=== PATIENT | female | born 1990 | race Caucasian/White ===

== ENCOUNTER 2021-03-26 08:00 | Outpatient (CLI) | payer OTHER ==
[2021-03-26 19:26] LABS: BILIRUBIN,URINE NEGATIVE (NEGATIVE); GLUCOSE, URINE (UA) NEGATIVE (NEGATIVE); KETONES,URINE (UA) NEGATIVE (NEGATIVE); LEUKOCYTE ESTERASE, URINE NEGATIVE (NEGATIVE); NITRITE,URINE NEGATIVE (NEGATIVE); OCCULT BLOOD,URINE NEGATIVE (NEGATIVE); PROTEIN,URINE NEGATIVE (NEGATIVE); UROBILINOGEN,URINE 0.2 (NORMAL) E.U./dL (NORMAL)
[2021-03-26 19:28] LABS: BACTERIA,URINE None Seen /HPF (None Seen); CLARITY,URINE CLEAR (CLEAR); RBC,URINE None Seen /HPF (0-5); SQUAMOUS EPITHELIAL CELL,UR FEW Squamous (<= Few); WBC,URINE 0-3 /HPF (0-5)
== END 2021-03-26 23:59 | disposition home or self-care (01) ==
LOC: LAB.WC 08:00
PROVIDERS: ATTEND Obstetrics & Gynecology
DX: Z34.80 Encounter for supervision of other normal pregnancy, unspecified trimester (principal)
CPT/HCPCS: 81001; 87086

== ENCOUNTER 2021-04-12 12:29 | Outpatient (CLI) | payer OTHER ==
[2021-04-12 13:53] LABS: BASOPHILS % (AUTO) 0.2 %; EOSINOPHILS # (AUTO) 0.1 10^3/uL (0.0-0.7); EOSINOPHILS % (AUTO) 1.1 %; HCT - HEMATOCRIT 39.6 % (37.0-47.0); HGB - HEMOGLOBIN 13.2 g/dL (12.0-16.0); LYMPHOCYTES % (AUTO) 22.7 %; MEAN CORPUSCULAR HEMOGLOBIN 28.8 pg (27.0-31.0); MEAN CORPUSCULAR HGB CONC 33.3 g/dL (32.0-36.0); MEAN CORPUSCULAR VOLUME 86.5 fL (81.0-99.0); MEAN PLATELET VOLUME 10.4 fL (7.9-10.8); MONOCYTES # (AUTO) 0.6 10^3/uL (0.0-1.0); MONOCYTES % (AUTO) 6.3 %; NEUTROPHILS # (AUTO) 6.2 10^3/uL (1.5-6.6); NEUTROPHILS % (AUTO) 69.4 %; PLT - PLATELET COUNT 214 10^3/uL (130-450); RED BLOOD COUNT 4.58 10^6/uL (4.20-5.40); RED CELL DISTRIBUTION WIDTH 13.5 % (12.0-15.0); WHITE BLOOD COUNT 8.9 x10^3/uL (4.8-10.8)
--- NOTE | 2021-04-12 16:54 | Ultrasound Report ---
PROCEDURE: OB First Trimester w/TV INDICATIONS: SUPERVISION NORMAL OUTSIDE/PRIOR DATING DATA: Last menstrual period (LMP): 02/19/2021. LMP-based estimated date of delivery (DOUG): 11/16/2021. First dating scan (date and location): 04/12/2021. Estimated date of delivery (DOUG) from first dating scan: 11/28/2021. TECHNIQUE: Real-time scanning was performed of the fetus and maternal pelvic organs, with image documentation. Endovaginal scanning was also performed to better visualize the fetus and maternal ovaries. COMPARISON: None FINDINGS: Embryo: [place]-rump length measures 1.06 cm corresponding to 7 week 1 day gestation. No perigestation al bleed present. Heart rate: 145 bpm Maternal cervix measures 3.2 cm in length, and is closed. Measurement variability in dating: +/- 4 weeks by LMP, +/- 7 days by mean sac diameter (use before 6 weeks gestation if crown-rump length not able to be measured), +/- 5 days by crown-rump length (6-12 weeks gestation). Maternal organs: Ovaries right-sided corpus luteum cyst noted. Both ovaries appropriate in size and echotexture without torsion. No adnexal mass.. IMPRESSION: Single live intrauterine corresponds with a 7 week 1 day gestation Reviewed by: Lion White MD on 04/12/2021 3:53 PM AKST Approved by: Lion White MD on 04/12/2021 3:53 PM AKST Station ID: [id number]
[2021-04-13 11:38] LABS: HEPATITIS B SURFACE ANTIGEN NON-REACTIVE (NON-REACTIVE); HEPATITIS C ANTIBODY NON-REACTIVE (NON-REACTIVE)
[2021-04-13 14:02] LABS: HIV AG/AB 4TH GEN NON-REACTIVE (NON-REACTIVE)
== END 2021-04-12 12:30 | disposition home or self-care (01) ==
LOC: DI 12:29
PROVIDERS: ATTEND Nurse Practitioner Obstetrics & Gynecology
DX: Z34.81 Encounter for supervision of other normal pregnancy, first trimester (principal); Z3A.01 Less than 8 weeks gestation of pregnancy; Z36.89 Encounter for other specified antenatal screening
CPT/HCPCS: 36415; 85025; 86592; 86762; 86787; 86803; 86850; 86900; 86901; 87340; 87389

== ENCOUNTER 2021-05-13 08:00 | Outpatient (CLI) | payer OTHER ==
[2021-05-13 22:42] LABS: CHLAMYDIA TRACHOMATIS DNA NEGATIVE (NEGATIVE); NEISSERIA GONORRHOEAE DNA NEGATIVE (NEGATIVE); TRICHOMONAS VAGINALIS DNA NEGATIVE (NEGATIVE)
== END 2021-05-13 23:59 | disposition home or self-care (01) ==
LOC: LAB 08:00
PROVIDERS: ATTEND Nurse Practitioner Obstetrics & Gynecology
DX: Z34.80 Encounter for supervision of other normal pregnancy, unspecified trimester (principal); Z36.89 Encounter for other specified antenatal screening
CPT/HCPCS: 87491; 87591; 87661

== ENCOUNTER 2021-07-13 10:11 | Outpatient (CLI) | payer OTHER ==
--- NOTE | 2021-07-13 12:45 | Ultrasound Report ---
PROCEDURE: OB Detailed Eval INDICATIONS: SUPERVISION OF OUTSIDE/PRIOR DATING DATA: Last menstrual period (LMP): February 19, 2021. LMP-based estimated date of delivery (DOUG): November 26, 2021. First dating scan (date ): April 12, 2021. Estimated date of delivery (DOUG) from first dating scan: November 28, 2021. TECHNIQUE: Real-time scanning was performed of the fetus, with image documentation and biometric measurements. COMPARISON: April 12, 2021 FINDINGS: General: A single living intrauterine gestation is present. Presentation: Transverse, variable Placenta: Placental position is low lying, approximately 1.4 cm from the internal os. Amniotic fluid index: 15 cm, appropriate for gestational age. heart rate: 148 beats per minute. Maternal cervical canal: 3.9 cm long; normal length is 2.5 cm or more. biometrics: Biparietal diameter: 4.8 cm Head circumference: 17.9 cm Abdominal circumference: 16.9 cm Femur length: 3.4 cm Estimated gestational age from initial scan: 20 weeks, 2 days. Composite gestational age from present scan: 20 weeks, 5 days Estimated weight and percentile: 403.4 g; 88.8 percentile Measurement variability in biometric dating: +/- 10 days from 12-20 weeks gestation, +/- 2 weeks from 20-30 weeks gestation, +/- 3 weeks at 30 weeks gestation or later. Anatomic survey: Neuro: Ventricles are normal at less than 10 mm. Cisterna magna is normal at 3-11 mm. Cerebellum i s normal in size and morphology. Nuchal skin fold: Normal at less than 6 mm between 14 and 20 weeks gestational age. Face: Nose and lips, facial profile are normal. Spine: No evidence for spina bifida. Heart: 4-chambered heart is present, with normal ventricular outflow tracts. Diaphragm: Diaphragm is intact. Stomach: Left-sided stomach is present. Kidneys: No hydronephrosis. Normal is less than 5 mm in 2nd trimester, less than 7 mm in 3rd trimester. Cord: 3 vessel cord has orthotopic insertion. Bladder: Normal in size. Extremities: All 4 extremities are visualized. IMPRESSION: Live single intrauterine gestation as detailed above. Reviewed by: Salo More MD on 07/13/2021 12:44 PM PDT Approved by: Salo More MD on 07/13/2021 12:44 PM PDT Station ID: [id number]
== END 2021-07-13 10:12 | disposition home or self-care (01) ==
LOC: DI 10:11
PROVIDERS: ATTEND Obstetrics & Gynecology
DX: Z34.82 Encounter for supervision of other normal pregnancy, second trimester (principal); Z3A.20 20 weeks gestation of pregnancy; Z36.89 Encounter for other specified antenatal screening

== ENCOUNTER 2021-08-03 16:46 | Outpatient (CLI) | payer OTHER ==
--- NOTE | 2021-08-04 17:15 | Ultrasound Report ---
PROCEDURE: OB F/U or Repeat INDICATIONS: LOW LYING PLACENTA OUTSIDE/PRIOR DATING DATA: Last menstrual period (LMP): 02/19/2021. LMP-based estimated date of delivery (DOUG): 11/27/2019 to. First dating scan (date and location): 04/12/2021. Estimated date of delivery (DOUG) from first dating scan: At 1822. The below data below was generated using the study generated DOUG of changes 22 TECHNIQUE: Real-time scanning was performed of the fetus, with image documentation and biometric measurements. Endovaginal scanning: Not indicated COMPARISON: 04/12/2021, 07/13/2021. FINDINGS: General: A single living intrauterine gestation is present. Presentation: Vertex Placenta: Placental position is posterior, without previa. Lower placenta edge is now approximately 5.5 cm from internal os. Amniotic fluid index: 16.6 cm, normal for gestational age. heart rate: 141 beats per minute. Maternal cervical canal: 3.4 cm long; normal length is 2.5 cm or more. Other: Not applicable. IMPRESSION: 1. No evidence of low-lying placenta seen on the current study. N average is approximately 5.5 cm fro m the internal os. 2. Normal amount of amniotic fluid. Fetus is in vertex presentation. heart rate is 141 bpm. Reviewed by: Reid Benz MD on 08/04/2021 5:13 PM PDT Approved by: Reid Benz MD on 08/04/2021 5:13 PM PDT Station ID: [id number]
== END 2021-08-03 16:47 | disposition home or self-care (01) ==
LOC: DI 16:46
PROVIDERS: ATTEND Obstetrics & Gynecology
DX: Z34.80 Encounter for supervision of other normal pregnancy, unspecified trimester (principal)

== ENCOUNTER 2021-08-26 13:28 | Outpatient (CLI) | payer OTHER ==
[2021-08-26 14:37] LABS: HCT - HEMATOCRIT 33.3 % (37.0-47.0); HGB - HEMOGLOBIN 10.4 g/dL (12.0-16.0); MEAN CORPUSCULAR HEMOGLOBIN 27.2 pg (27.0-31.0); MEAN CORPUSCULAR HGB CONC 31.2 g/dL (32.0-36.0); MEAN CORPUSCULAR VOLUME 87.2 fL (81.0-99.0); MEAN PLATELET VOLUME 10.2 fL (7.9-10.8); RED BLOOD COUNT 3.82 10^6/uL (4.20-5.40); RED CELL DISTRIBUTION WIDTH 14.9 % (12.0-15.0); WHITE BLOOD COUNT 5.3 x10^3/uL (4.8-10.8)
== END 2021-08-26 13:29 | disposition home or self-care (01) ==
LOC: LAB 13:28
PROVIDERS: ATTEND Obstetrics & Gynecology
DX: Z34.80 Encounter for supervision of other normal pregnancy, unspecified trimester (principal); Z36.89 Encounter for other specified antenatal screening
CPT/HCPCS: 36415; 82950; 85027

== ENCOUNTER 2021-11-09 07:31 | Outpatient (CLI) | payer OTHER ==
[2021-11-09] MEDS ORDERED: SODIUM CHLORIDE FLUSH 0.9% 10 ML SYRINGE IVP PRN (08:17)
[2021-11-09] MEDS ORDERED: TERBUTALINE 1 MG/ML VIAL SUBQ PRN (08:17)
[2021-11-09] MEDS ORDERED: RHO(D) IMMUNE GLOBULIN 300 MCG SYRINGE IM PRN (08:17)
[2021-11-09] MEDS ORDERED: fentaNYL 100 MCG/2 ML VIAL IVP PRN (08:17)
[2021-11-09] MEDS ORDERED: ONDANSETRON 4 MG/2 ML VIAL IVP PRN (08:17)
[2021-11-09] MEDS ORDERED: MINERAL OIL LIGHT 10 ML TOP SCH (09:00)
--- NOTE | 2021-11-09 09:09 | PROVIDER PROGRESS NOTE ---
- Procedures OB Procedure Performed: NST NST Procedure: NST Procedure Start Date 11/09/21 Start Time 07:50 Stop Time 08:15 Vibroacoustic Stimulation Used No Patient States Movement Yes Service Date of procedure: 11/09/21 (Read 11/09/21) - Plan Plan: Patient is a 31-year-old -0-0-1 at 37 weeks 4 days gestation presenting for external cephalic version. She denies contractions she has good movement, no leaking, no vaginal bleeding. She denies headache, right upper quadrant pain, changes in vision. Past medical history Iron deficiency anemia Past surgical history Foot surgery Family history Father: [place], diabetes Maternal grandfather: Coronary artery disease Social history Denies tobacco, alcohol, drugs Physical Constitutional: alert, no acute distress, well hydrated, well developed, well nourished, appropriate dress. Cardiovascular: Regular rate and rhythm. Respiratory: no respiratory distress. Abdomen: nondistended, nontender, no guarding. Psych: affect and mood appropriate, normal interaction, good eye contact. FHT: 135 bpm baseline, moderate variability, accelerations present, no decelerations. [place]: Quiescent Ultrasound: Cephalic presentation Assessment and plan 31-year-old -0-0-1 at 37 weeks 4 days gestation with cephalic presentation 1. malpresentation, resolved: Patient presented for external cephalic version as she was breech presentation last week in clinic. Today on ultrasound, she is cephalic, so procedure not performed. Reactive NST today. 2. 37 weeks gestation -Follow-up in clinic tomorrow for routine visit.
[2021-11-09 09:12] VITALS: BP 126/62
== END 2021-11-09 08:45 | disposition home or self-care (01) ==
LOC: WFO 07:31 → FBP 07:34 → WFO 08:45
PROVIDERS: ATTEND Obstetrics & Gynecology
DX: Z34.93 Encounter for supervision of normal pregnancy, unspecified, third trimester (principal)
CPT/HCPCS: 59025

== ENCOUNTER 2021-11-24 14:16 | Inpatient (IN) | payer OTHER ==
[2021-11-24] MEDS ORDERED: SODIUM CHLORIDE FLUSH 0.9% 10 ML SYRINGE IVP PRN (14:22)
[2021-11-24] MEDS ORDERED: hydrALAZINE INJ 20 MG/ML VIAL IVP PRN ×2 (14:22)
[2021-11-24] MEDS ORDERED: miSOPROStoL 200 MCG TABLET PR PRN (14:22)
[2021-11-24] MEDS ORDERED: NIFEdipine 10 MG CAPSULE PO PRN (14:22)
[2021-11-24] MEDS ORDERED: CARBOPROST TROMETHAMINE 250 MCG/ML AMP IM PRN (14:22)
[2021-11-24] MEDS ORDERED: OXYTOCIN 10 UNIT/ML VIAL IM PRN (14:22)
[2021-11-24] MEDS ORDERED: METHYLERGONOVINE 0.2 MG/ML VIAL IM PRN (14:22)
[2021-11-24] MEDS ORDERED: OXYTOCIN/SODIUM CHLORIDE 500 ML IV PRN (14:22)
[2021-11-24] MEDS ORDERED: TRANEXAMIC ACID IN NACL 1,000 MG/100 ML BAG IV PRN (14:22)
[2021-11-24] MEDS ORDERED: TERBUTALINE 1 MG/ML VIAL SUBQ PRN (14:22)
[2021-11-24] MEDS ORDERED: miSOPROStoL 200 MCG TABLET BC PRN (14:22)
[2021-11-24] MEDS ORDERED: fentaNYL 100 MCG/2 ML VIAL IVP PRN (14:22)
[2021-11-24] MEDS ORDERED: lidocaine 1% 20 ML MDV ID PRN (14:22)
[2021-11-24] MEDS ORDERED: LABETALOL 20 MG/4 ML SYRINGE IVP PRN ×3 (14:22)
[2021-11-24] MEDS ORDERED: SODIUM CHLORIDE FLUSH 0.9% 10 ML SYRINGE IVP SCH (15:00)
[2021-11-24 15:05] LABS: BASOPHILS % (AUTO) 0.1 %; EOSINOPHILS # (AUTO) 0.1 10^3/uL (0.0-0.7); EOSINOPHILS % (AUTO) 0.8 %; HCT - HEMATOCRIT 34.8 % (37.0-47.0); HGB - HEMOGLOBIN 11.6 g/dL (12.0-16.0); LYMPHOCYTES # (AUTO) 1.4 10^3/uL (1.5-3.5); LYMPHOCYTES % (AUTO) 15.2 %; MEAN CORPUSCULAR HGB CONC 33.3 g/dL (32.0-36.0); MEAN CORPUSCULAR VOLUME 83.9 fL (81.0-99.0); MEAN PLATELET VOLUME 10.6 fL (7.9-10.8); MONOCYTES # (AUTO) 0.5 10^3/uL (0.0-1.0); MONOCYTES % (AUTO) 5.9 %; NEUTROPHILS # (AUTO) 6.9 10^3/uL (1.5-6.6); NEUTROPHILS % (AUTO) 76.6 %; PLT - PLATELET COUNT 168 10^3/uL (130-450); RED BLOOD COUNT 4.15 10^6/uL (4.20-5.40); RED CELL DISTRIBUTION WIDTH 15.2 % (12.0-15.0)
[2021-11-24 15:49] LABS: ALBUMIN 3.2 g/dL (3.2-5.5); ALBUMIN/GLOBULIN RATIO 0.9 (1.0-2.2); BILIRUBIN,TOTAL 0.4 mg/dL (0.2-1.0); CALCIUM 9.6 mg/dL (8.5-10.3); CREATININE 0.8 mg/dL (0.4-1.0); POTASSIUM 3.8 mmol/L (3.5-5.0); TOTAL PROTEIN 6.7 g/dL (6.7-8.2)
[2021-11-24] MEDS ORDERED: AMPICILLIN 2 GM in SODIUM CHLORIDE 0.9% MINIBAG 100 ML IV ONE (16:18)
--- NOTE | 2021-11-24 16:29 | HISTORY & PHYSICAL EXAMINATION ---
Admit History - Visit Reason Visit Reason: Other (IOL for elevated BP at routine OB visit today. 140s/90s x2) - : 2 Parity: 1 Care: positive: [facility] Risk/History: positive: induced HTN Complications This : positive: induced HTN Smoking Status: Never smoker - Mother's Labs Mother's Blood Type: positive: O Mother's RH: positive: Positive GBS: positive: Group B Strep Positive Rubella Status: positive: Immune - Other Maternal History Other Maternal History: Med: Anemia Surg: Foot laceration repair Meds/Allgy - Allergies Allergies/Adverse Reactions: Allergies Allergy/AdvReac Type Severity Reaction Status Date / Time No Known Drug Allergies Allergy Verified 11/24/21 16:14 Review of Systems - All Other Systems All Other Systems: reports: Reviewed and negative Physical - Abdominal Exam Vital Signs: Temp Pulse Resp BP Pulse Ox 98.1 F 74 16 112/71 11/24/21 15:26 11/24/21 15:26 11/24/21 15:26 11/24/21 15:26 Contraction Frequency (min/apart): None Uterine Resting Tone: positive: Soft - Monitoring Heart Rate Baseline: 130 Strip Review: positive: Category I - Presentation Presentation: positive: Vertex (Cephalic, EFW 3600g, placenta posterior) - Vaginal Exam Membranes: positive: Membranes intact Dilation (in cm): 2 Effacement (%): 20 Station: positive: -3 Cervical Position: positive: Midposition - Speculum Exam Speculum Exam Performed: positive: No Plan for Labor - Plan For Labor I expect patient to be DC'd or transferred within 96 hours.: Yes Plan for Labor: 31yo at 39.5w confirmed by 7w US sent from the office for IOL for gestational hypertension vs preeclampsia, pending PCR - Admit, consent obtained for IOL - GBS positive, will start ampicillin with second misoprostol - Misoprostol 50mcg x2, then plan for Pitocin 0600 tomorrow - Anticipate by tomorrow
[2021-11-24] MEDS ORDERED: OXYTOCIN/SODIUM CHLORIDE 500 ML IV SCH (17:00)
[2021-11-24 17:12] LABS: CREATININE,URINE 181.3 mg/dL; PROTEIN/CREATININE RATIO,URINE 0.1 (<=0.2)
[2021-11-24] MEDS: miSOPROStoL 100 MCG TABLET BC SCH ×2 (17:30→21:51)
[2021-11-24] MEDS: LACTATED RINGERS 1,000 ML IV SCH (20:50)
[2021-11-25] MEDS: AMPICILLIN 1 GM in SODIUM CHLORIDE 0.9% MINIBAG 100 ML IV SCH ×4 (02:08→13:53)
[2021-11-25] MEDS: LACTATED RINGERS 1,000 ML IV SCH ×3 (02:21→13:09)
[2021-11-25] MEDS ORDERED: hydrALAZINE INJ 20 MG/ML VIAL IVP PRN ×4 (05:11→05:14)
[2021-11-25] MEDS ORDERED: NIFEdipine 10 MG CAPSULE PO PRN ×2 (05:11→05:14)
[2021-11-25] MEDS ORDERED: LABETALOL 20 MG/4 ML SYRINGE IVP PRN ×6 (05:11→05:14)
[2021-11-25] MEDS ORDERED: SODIUM CHLORIDE FLUSH 0.9% 10 ML SYRINGE IVP PRN (05:14)
[2021-11-25] MEDS ORDERED: METHYLERGONOVINE 0.2 MG/ML VIAL IM PRN (05:14)
[2021-11-25] MEDS ORDERED: lidocaine 1% 20 ML MDV ID PRN (05:14)
[2021-11-25] MEDS ORDERED: OXYTOCIN 10 UNIT/ML VIAL IM PRN (05:14)
[2021-11-25] MEDS ORDERED: miSOPROStoL 200 MCG TABLET BC PRN (05:14)
[2021-11-25] MEDS ORDERED: TERBUTALINE 1 MG/ML VIAL SUBQ PRN (05:14)
[2021-11-25] MEDS ORDERED: fentaNYL 100 MCG/2 ML VIAL IVP PRN (05:14)
[2021-11-25] MEDS ORDERED: TRANEXAMIC ACID IN NACL 1,000 MG/100 ML BAG IV PRN (05:14)
[2021-11-25] MEDS ORDERED: miSOPROStoL 200 MCG TABLET PR PRN (05:14)
[2021-11-25] MEDS ORDERED: CARBOPROST TROMETHAMINE 250 MCG/ML AMP IM PRN (05:14)
[2021-11-25] MEDS: OXYTOCIN/SODIUM CHLORIDE 500 ML IV SCH ×2 (06:17→15:56)
--- NOTE | 2021-11-25 09:22 | PROVIDER PROGRESS NOTE ---
Labor Progress Note - Uterine Monitoring Uterine Monitoring Mode: positive: External toco Contraction Frequency (min/apart): 4 Contraction Intensity: positive: Moderate Uterine Resting Tone: positive: Soft - Monitoring Monitor Mode: positive: External ultrasound Heart Rate Baseline: 120 Heart Rate Variability: positive: Moderate (6-25 bmp) Accelerations: positive: Present, 15x15 Decelerations: positive: None Strip Review: positive: Category I - Vaginal Exam Dilation (in cm): 4 Effacement (%): 50 Cervical Position: Midposition - Labor Progress Note Labor Progress Note/Additional Text: 31yo at 39.6w confirmed by 7w US admitted for IOL for GHTN - Misoprosol 50mcg x2 - Receiving ampicillin for positive GBS - Continue Pitocin - Plan for AROM next exam
[2021-11-25] MEDS ORDERED: NALOXONE 0.4 MG/ML VIAL IVP PRN (11:47)
[2021-11-25] MEDS ORDERED: ROPIVACAINE 0.2% 200 MG/100 ML BAG EP PRN (11:47)
[2021-11-25] MEDS ORDERED: ONDANSETRON 4 MG/2 ML VIAL IVP PRN ×2 (11:47→12:27)
[2021-11-25] MEDS ORDERED: NALBUPHINE 10 MG/ML AMP IVP PRN (11:47)
[2021-11-25] MEDS ORDERED: METOCLOPRAMIDE 10 MG/2 ML VIAL IVP PRN (11:47)
[2021-11-25] MEDS ORDERED: ePHEDrine 50 MG/ML VIAL IVP PRN (11:47)
[2021-11-25] MEDS ORDERED: diphenhydrAMINE INJ 50 MG/ML VIAL IVP PRN (11:47)
--- NOTE | 2021-11-25 11:50 | ANESTHESIA ---
Pre-Anesthesia VS, & Labs - Diagnosis labor indiction - Procedure epidural Vital Signs: Temp Pulse Resp BP Pulse Ox 36.8 C 69 19 109/60 100 11/25/21 06:00 11/25/21 06:00 11/25/21 06:00 11/25/21 06:00 11/25/21 06:00 Height: 5 ft 4 in Weight (kg): 98.883 kg Body Mass Index: 37.4 BMI Classification: Obese - NPO Other - Is Patient ?: Yes - Lab Results Current Lab Results: Laboratory Tests 11/24/21 15:20: Blood Type O POSITIVE, Antibody Screen NEGATIVE 11/24/21 15:20: Sodium 136, Potassium 3.8, Chloride 104, Carbon Dioxide 23, Anion Gap 9.0, BUN 10, Creatinine 0.8, Estimated GFR (MDRD) 84 L, Glucose 100, Calcium 9.6, Total Bilirubin 0.4, AST 16, ALT 16, Alkaline Phosphatase 101, Total Protein 6.7, Albumin 3.2, Globulin 3.5, Albumin/Globulin Ratio 0.9 L 11/24/21 14:50: WBC 9.0, RBC 4.15 L, Hgb 11.6 L, Hct 34.8 L, MCV 83.9, MCH 28.0, MCHC 33.3, RDW 15.2 H, Plt Count 168, MPV 10.6, Neut # (Auto) 6.9 H, Lymph # (Auto) 1.4 L, [place] # (Auto) 0.5, Eos # (Auto) 0.1, Baso # (Auto) 0.0, Absolute Nucleated RBC 0.00, Nucleated RBC % 0.0 Fish Bones: 11/24/21 14:50 11/24/21 15:20 Home Medications and Allergies Active Medications Carboprost Tromethamine (Carboprost Tromethamine 250 Mcg/Ml Amp) 250 mcg IM .ONCE PRN PRN Reason: Hemorrhage Diphenhydramine HCl (Diphenhydramine Inj 50 Mg/Ml Vial) 12.5 - 25 mg IVP Q6HR PRN PRN Reason: ITCHING Ephedrine Sulfate (Ephedrine 50 Mg/Ml Vial) 5 mg IVP Q5M PRN PRN Reason: For SBP<100;give until SBP>100 Fentanyl (Fentanyl 100 Mcg/2 Ml Vial) 50 mcg IVP Q1H PRN PRN Reason: Severe Pain (score 7-10) Hydralazine HCl (Hydralazine Inj 20 Mg/Ml Vial) 10 mg IVP .ONCE PRN PRN Reason: SBP> or= 160 OR DBP> or= 110 Hydralazine HCl (Hydralazine Inj 20 Mg/Ml Vial) 5 - 10 mg IVP Q20M PRN; Protocol PRN Reason: SBP> or= 160 OR DBP> or= 110 Ampicillin Sodium 1 gm/ Sodium (Chloride) 100 mls @ 200 mls/hr IV Q4H [facility] Last Infusion: 11/25/21 10:30 Dose: Infused Lactated Ringer's (Lr) 1,000 mls @ 125 mls/hr IV .Q8H [facility] Last Admin: 11/25/21 08:04 Dose: 125 mls/hr Tranexamic Acid (Tranexamic 1,000 Mg/100ml-Nacl) 1,000 mg in 100 mls @ 600 mls/hr IV Q30M PRN PRN Reason: EBL >1200mL and within 3hr Oxytocin/Sodium Chloride (Pitocin/Sodium Chloride) 500 mls @ 1 mls/hr IV TITR CINTHIA; Protocol Last Admin: 11/25/21 06:17 Dose: 1 milliunit/min, 1 mls/hr Ropivacaine (Naropin 0.2%) 200 mg in 100 mls @ 0 mls/hr EP PRN PRN; Protocol PRN Reason: PAIN Labetalol HCl (Labetalol 20 Mg/4 Ml Syringe) 20 mg IVP .ONCE PRN PRN Reason: SBP> or= 160 OR DBP> or= 110 Labetalol HCl (Labetalol 20 Mg/4 Ml Syringe) 20 - 80 mg IVP Q10M PRN; Protocol PRN Reason: SBP> or= 160 OR DBP> or= 110 Labetalol HCl (Labetalol 20 Mg/4 Ml Syringe) 20 - 40 mg IVP Q10M PRN; Protocol PRN Reason: SBP> or= 160 OR DBP> or= 110 Lidocaine HCl (Lidocaine 1% 20 Ml Mdv) 20 ml ID .ONCE PRN PRN Reason: PERINEAL REPAIR Stop: 11/28/21 05:14 Methylergonovine Maleate (Methylergonovine 0.2 Mg/Ml Vial) 0.2 mg IM .ONCE PRN PRN Reason: Hemorrhage Metoclopramide HCl (Metoclopramide 10 Mg/2 Ml Vial) 10 mg IVP Q6HR PRN PRN Reason: Nausea / Vomiting Misoprostol (Misoprostol 100 Mcg Tablet) 50 mcg BC Q4H [facility] Last Admin: 11/24/21 21:51 Dose: 50 mcg Misoprostol (Misoprostol 200 Mcg Tablet) 600 mcg BC .ONCE PRN PRN Reason: Hemorrhage Misoprostol (Misoprostol 200 Mcg Tablet) 800 mcg CA .ONCE PRN PRN Reason: Hemorrhage Nalbuphine HCl (Nalbuphine 10 Mg/Ml Amp) 2.5 - 5 mg IVP Q4H PRN PRN Reason: ITCHING Naloxone HCl (Naloxone 0.4 Mg/Ml Vial) 0.1 mg IVP Q2M PRN PRN Reason: RR<8 Nifedipine (Nifedipine 10 Mg Capsule) 10 - 20 mg PO Q20M PRN; Protocol PRN Reason: SBP> or= 160 OR DBP> or= 110 Ondansetron HCl (Ondansetron 4 Mg/2 Ml Vial) 4 mg IVP Q6HR PRN PRN Reason: Nausea / Vomiting Oxytocin (Oxytocin 10 Unit/Ml Vial) 10 unit IM .ONCE PRN PRN Reason: Step One if no IV access. Sodium Chloride (Sodium Chloride Flush 0.9% 10 Ml Syringe) 10 ml IVP PRN PRN PRN Reason: NEEDED PER PROVIDER ORDERS Sodium Chloride (Sodium Chloride Flush 0.9% 10 Ml Syringe) 10 ml IVP Q8H [facility] Terbutaline Sulfate (Terbutaline 1 Mg/Ml Vial) 0.25 mg SUBQ .ONCE PRN PRN Reason: Tachystole Allergies/Adverse Reactions: Allergies Allergy/AdvReac Type Severity Reaction Status Date / Time No Known Drug Allergies Allergy Verified 11/24/21 16:14 Anes History & Medical History - Anesthetic History Anesthesia Complications: reports: No previous complications - Medical History Smoking Status: Never smoker - Obstetrical History : 2 Parity: 1 Events: reports: induced HTN Complications: reports: induced HTN Exam General: Alert, Oriented x3 Dental: WNL Neck Mobility: Normal Mallampati classification: II Thyromental Distance: greater than 6 cm Respiratory: Lungs clear Cardiovascular: Regular rate Plan Anesthesia Type: Epidural Consent for Procedure(s) Verified and Reviewed: Yes Code Status: Attempt Resuscitation ASA classification: 2-Mild systemic disease Is this case an emergency?: No
--- NOTE | 2021-11-25 13:07 | PROVIDER PROGRESS NOTE ---
Labor Progress Note - Uterine Monitoring Contraction Frequency (min/apart): 2-4 Contraction Intensity: positive: Moderate Uterine Resting Tone: positive: Soft - Monitoring Monitor Mode: positive: External ultrasound Heart Rate Baseline: 130 Accelerations: positive: Present, 15x15 Decelerations: positive: None, Early Strip Review: positive: Category I - Vaginal Exam Dilation (in cm): 7 Effacement (%): 100 Station: 0 Cervical Position: Anterior - Labor Progress Note Labor Progress Note/Additional Text: 31yo admitted for IOL for GHTN - Received epidural - Continue Pitocin - GBS treated - Anticipate
[2021-11-25] MEDS ORDERED: MAGNESIUM HYDROXIDE 2,400 MG/30 ML UDC PO PRN (16:20)
[2021-11-25] MEDS ORDERED: HYDROCORTISONE 1% CREAM 28 GM TUBE PR PRN (16:20)
[2021-11-25] MEDS ORDERED: WITCH HAZEL/GLYCERIN 1 PAD TOP PRN (16:20)
--- NOTE | 2021-11-25 16:25 | DELIVERY NOTE ---
Delivery Note - Labor Labor: positive: Induced by oxytocin - Delivery Method Delivery Method: positive: Spontaneous vaginal delivery - Cervical Ripening Method Cervical Ripening Method: positive: Misoprostil - Presentation Presentation: positive: Vertex, ROGER - left occiput anterior - Nuchal Cord Nuchal Cord: positive: None - Anesthetic Anesthetic Type: - Amniotic Fluid Description Amniotic Fluid Description: positive: Clear - Laceration Laceration: positive: 1st degree (Not requiring repair) - Delivery Outcome Delivery Outcome: positive: Livebirth - [place] : positive: Placed in direct skin contact with mother, Stimulated, Warmed [place] sex: positive: Male - Cord Cord: positive: 3 vessels - Placenta Placenta: positive: Intact, Spontaneous - Estimated Blood Loss Estimated Blood Loss (in cc): 300 - Delivery Comments (Free Text/Narrative) Delivery Comments (Free Text/Narrative): SVE 10/100+2. Maternal pushing with good efforts. Head delivered ROGER. Shoulders and body delivered with ease. Baby placed on mother's abdomen. Delayed cord clamping. Fundus firm. Placenta delivered spontaneously and intact. 3vc. Vagina and perineum inspected- 1st degree vaginal laceration not requiring repair. Fundal massage and Pitocin infusion, bleeding decreased. QBL 300cc. Family bonding at bedside.
[2021-11-25] MEDS: ACETAMINOPHEN 500 MG TABLET PO SCH ×2 (16:55→23:46)
[2021-11-25] MEDS: IBUPROFEN 800 MG TABLET PO SCH ×2 (16:56→23:47)
[2021-11-25] MEDS ORDERED: LACTATED RINGERS 1,000 ML IV SCH (17:00)
[2021-11-25] MEDS: SODIUM CHLORIDE FLUSH 0.9% 10 ML SYRINGE IVP SCH (20:08)
[2021-11-25] MEDS: DOCUSATE SODIUM 100 MG CAPSULE PO SCH (20:08)
[2021-11-26] MEDS: SODIUM CHLORIDE FLUSH 0.9% 10 ML SYRINGE IVP SCH (03:57)
[2021-11-26] MEDS: IBUPROFEN 800 MG TABLET PO SCH ×2 (05:01→14:28)
--- NOTE | 2021-11-26 08:06 | PROVIDER PROGRESS NOTE ---
Subjective - Prog Note Date Prog Note Date: 11/26/21 Prog Note Time: 08:00 - Subjective Pt reports feeling: Improved (Doing well and want to go home.) Subjective: Post day #! No prob with nursing no more pain Perineum : intact normal lochia P: home today and RTO 6 wks for PP check Objective - Vital Signs/Intake & Output Vital Signs: Vital Signs x48h Temp Pulse Resp BP 11/26/21 03:54 97.9 F 64 18 98/55 L Intake & Output: Intake & Output 11/23/21 11/24/21 11/25/21 11/26/21 23:59 23:59 23:59 23:59 Intake Total 1900 3259.65 500 Output Total 415 600 Balance 1900 2844.65 -100 - Lab Results Fish Bones: 11/24/21 14:50 11/24/21 15:20
--- NOTE | 2021-11-26 08:09 | Discharge Plan ---
Discharge Plan Problem Reviewed?: Yes Disposition: Home, Self Care Diet: Regular Activity Restrictions: No sexual intercourse 6w Shower Restrictions: No Driving Restrictions: Yes (until PP 6 w) Assistance Devices: Other (none) Weight Bearing: Partial Weight No Smoking: If you smoke, Please STOP! Call for help. Follow-up with: Zander Villa MD [Provider Admit Priv/Credential] -
--- NOTE | 2021-11-26 08:19 | DISCHARGE SUMMARY ---
Discharge Summary Admit Date: 11/24/21 Discharge Date: 11/26/21 Discharging Provider: Steve Primary Care Provider: Allen Code Status: Attempt Resuscitation - DIAGNOSES Admission Diagnoses: IUP gestational hypertension Discharge Diagnoses with Status of Each Condition: Normal #1 - HPI History of Present Illness: This 31 yo was admitted for IOL with cytotec and pitocin for gHTN. Responded well and had a successful NVD. - HOSPITAL COURSE Hospital Course: Normal course. - ALLERGIES Allergies/Adverse Reactions: Allergies Allergy/AdvReac Type Severity Reaction Status Date / Time No Known Drug Allergies Allergy Verified 11/24/21 16:14 - PHYSICAL EXAM AT DISCHARGE General Appearance: positive: No acute distress Eyes Bilateral: positive: Normal inspection ENT: positive: ENT inspection nml Neck: positive: Nml inspection Respiratory: positive: Chest non-tender, No respiratory distress Cardiovascular: positive: Regular rate & rhythm Abdomen: positive: Non-tender Back: positive: Nml inspection Skin: positive: Color nml Extremities: positive: Non-tender Neurologic/Psychiatric: positive: Oriented x3 - LABS Result Diagrams: 11/24/21 14:50 11/24/21 15:20 - QUALITY (Female Hip Fx Only) Was patient sent home on osteoporosis medication?: No - FOLLOW UP Follow Up: at the clinic in 6 weeks - TIME SPENT Time Spent in Discharge (Minutes): 10
[2021-11-26 12:52] VITALS: BP 123/70
[2021-11-26] MEDS: DOCUSATE SODIUM 100 MG CAPSULE PO SCH (14:28)
[2021-11-26] MEDS: ACETAMINOPHEN 500 MG TABLET PO SCH (14:28)
--- NOTE | 2021-11-26 18:29 | Labor Flowsheet ---
Labor Flowsheet Datetime Report Generated by CPN: 11/26/2021 18:29 Datetime: 11/26/2021 12:47 VITAL SIGNS NBP Sys/[place]/Mean (mmHg): 123 : 70 : 81 Pulse: 77 LaborFlag: Labor Datetime: 11/25/2021 18:50 SpO2 (%): 100 Datetime: 11/25/2021 16:29 Respirations: 17 Temperature (C): 37.1 Datetime: 11/25/2021 15:50 FHR Baseline Rate : 135 Datetime: 11/25/2021 15:46 STAGE 2 Pushing: Coached on Pushing; No Urge to Push Pushing Position: Pushing with Contractions; Pushing Lithotomy Pushing Progress: Descent with Pushing; with Pushing Datetime: 11/25/2021 15:45 UTERINE ACTIVITY Monitor Mode: External Frequency (min): 2-3.5 Quality: Moderate Duration (sec): 50-70 Pattern: Normal: <= 5 Contractions in 10 Minutes Resting Tone (Palpate): Relaxed ASSESSMENT A Monitor Mode: External US Variability: Moderate 6-25 bpm Accelerations: 15X15 Decelerations: None Category: Category I Datetime: 11/25/2021 15:44 I/O Interventions: [place] Discontinued Datetime: 11/25/2021 15:40 VAGINAL EXAM Dilatation (cm): 10.0 Effacement (%): 100 Station: 2 Exam by: Dr. Baldwin Datetime: 11/25/2021 15:00 Pitocin Checklist: At Least 1 Acceleration of 15 bpm x 15 Seconds in 30 Minutes or Adequate Variabi lity; No More than 1 Late Deceleration Occurred in Past 30 Minutes; No More than 2 Variable Decelerat ions > 60 Seconds in Duration and decreasing >60 bpm in 30 minutes; No More than 5 Uterine Contractio ns in 10 Minutes for any 20 Minute Interval; Uterus Palpates Soft between Contractions Datetime: 11/25/2021 14:47 Provider Reviewed Strip: Yes Communication Comments: Provider reviewed EFM. No change in plan of care. Datetime: 11/25/2021 14:33 Monitor Interventions for UA: [place] Adjusted Pain Coping: Sleeping Datetime: 11/25/2021 14:30 Comments: accelerations with each contraction. Confirmed and maternal tracings, pulse oximet ry on continuously Datetime: 11/25/2021 14:00 FHR Baseline Changes: No Baseline Change Datetime: 11/25/2021 13:53 Antibiotics: Ampicillin IV 1 Gm Datetime: 11/25/2021 13:19 Monitor Interventions for FHR: Ultrasound Adjusted Patient Position/Activity: Semi-Fowlers Datetime: 11/25/2021 13:01 Temperature Route: Oral Datetime: 11/25/2021 12:41 Patient Care Comments: frog legs Datetime: 11/25/2021 12:37 PATIENT CARE IV/Blood Work: IV Bolus Started COMMUNICATION Communication: Provider at Bedside Datetime: 11/25/2021 11:41 Epidural Procedure: Loading Dose Epidural Procedure Other: Pump Started Datetime: 11/25/2021 11:30 Actions for Decelerations: Other PAIN Pain Scale: 10 Comfort Measures: Breathing/Relaxation; Coaching; Back Rub Given; Family Support Datetime: 11/25/2021 11:23 PROCEDURE TIME OUT Procedure Verify: Accurate Procedure Consent Form; Agreement on Procedure to be Done; Correct Patie nt Position ANESTHESIA Anesthesia Plans: Epidural Epidural Positioning: Sitting Datetime: 11/25/2021 10:59 Anesthesia Comments: Christy Aube, [employer]SEM[employer] OPERATOR at bedside for consultation per patient request Datetime: 11/25/2021 10:40 Vaginal Bleeding: Normal Show Cervix, Consistency: Soft Cervix, Position: Midposition Vaginal Exam Comments: Per patient request to evaluate pain control choice Datetime: 11/25/2021 09:45 Membrane Status: Ruptured Membranes Rupture Method: Spontaneous Amniotic Fluid Color: Clear Amniotic Fluid Amount: Small Amniotic Fluid Odor: Normal Nitrazine: Positive Datetime: 11/25/2021 09:27 MEDICATIONS Pitocin (milliunits): Increased to @ 9 Datetime: 11/25/2021 07:16 Contraction Comments: inverted Datetime: 11/25/2021 07:02 Oxygen Method: Room Air Datetime: 11/24/2021 23:59 Pain Presence: Intermittent Pain Type: Cramping Pain Location: Abdomen Datetime: 11/24/2021 21:51 Cervical Ripening Agents: Cytotec @ Datetime: 11/24/2021 21:21 Medication Comments: LR 500 ml bolus complete, Kr @ 125 ml/hr Datetime: 11/24/2021 19:53 Stage of : Labor Vital Sign Comments: 4
== END 2021-11-26 18:00 | disposition home or self-care (01) | DRG 807 ==
LOC: WFO 14:16 → FBP 14:18 → WFO 14:20 → FBP 14:22 → OBSVTOIN 11-25 07:21
PROVIDERS: ADMIT Obstetrics & Gynecology; ATTEND Obstetrics & Gynecology
PROC: 10E0XZZ Delivery of Products of Conception, External Approach (ICD-10-PCS; principal; 2021-11-25)
PROC: 3E0DXGC Introduction of Other Therapeutic Substance into Mouth and Pharynx, External Approach (ICD-10-PCS; 2021-11-25)
PROC: 3E033VJ Introduction of Other Hormone into Peripheral Vein, Percutaneous Approach (ICD-10-PCS; 2021-11-25)
DX: O13.4 Gestational [pregnancy-induced] hypertension without significant proteinuria, complicating childbirth (principal); Z37.0 Single live birth; Z3A.39 39 weeks gestation of pregnancy; O70.0 First degree perineal laceration during delivery; O99.824 Streptococcus B carrier state complicating childbirth
CPT/HCPCS: 80053; 82570; 84156; 85025; 86850; 86900; 86901; 96365; A9270; J7120

== ENCOUNTER 2022-02-08 06:13 | Day surgery (SDC) | payer OTHER ==
[2022-02-08] MEDS ORDERED: LACTATED RINGERS 1,000 ML IV ONE ×2 (06:18→09:08)
[2022-02-08 06:40] LABS: HCG UR QUAL NEGATIVE
[2022-02-08] MEDS ORDERED: PROPOFOL 200 MG/20 ML VIAL IVP ONE (07:09)
[2022-02-08] MEDS ORDERED: ROCURONIUM 50 MG/5 ML VIAL ONE (07:09)
[2022-02-08] MEDS ORDERED: LIDOCAINE MPF 2%-EPI 1:200000 20 ML VIAL ONE (07:11)
[2022-02-08] MEDS ORDERED: BUPIVACAINE 0.5% PF 30 ML VIAL ONE (07:11)
[2022-02-08] MEDS ORDERED: MIDAZOLAM 2 MG/2 ML VIAL ONE (07:11)
[2022-02-08] MEDS ORDERED: fentaNYL 100 MCG/2 ML VIAL ONE (07:11)
[2022-02-08] MEDS ORDERED: ONDANSETRON 4 MG/2 ML VIAL ONE (07:13)
[2022-02-08] MEDS ORDERED: DEXAMETHASONE 4 MG/ML VIAL ONE ×2 (07:13→08:06)
--- NOTE | 2022-02-08 07:43 | ANESTHESIA ---
Pre-Anesthesia VS, & Labs Height: 5 ft 4 in Weight (kg): 94.8 kg Body Mass Index: 35.9 BMI Classification: Obese - NPO >8 hours - Is Patient ?: No <Susan Hanson - Last Filed: 02/08/22 07:41> - Lab Results Fish Bones: 02/08/22 07:30 <Christy Hair - Last Filed: 02/08/22 08:19> - Diagnosis DESIRES SALPINGECTOMY (Susan Hanson) desires sterilization (Christy Hair) - Procedure LAPAROSCOPIC SALIPINGECTOMY (Susan Hanson) Vital Signs: Temp Pulse Resp BP Pulse Ox O2 Flow Rate 37.0 C 78 18 113/78 96 02/08/22 06:21 02/08/22 06:21 02/08/22 06:21 02/08/22 06:21 02/08/22 06:21 - Lab Results Current Lab Results: Laboratory Tests 02/08/22 07:30: WBC 5.4, RBC 4.33, Hgb 11.7 L, Hct 36.3 L, MCV 83.8, MCH 27.0, MCHC 32.2, RDW 14.1, Plt Count 221, MPV 9.7, Neut # (Auto) 3.0, Lymph # (Auto) 1.7, Keith # (Auto) 0.6, Eos # (Auto) 0.2, Baso # (Auto) 0.0, Absolute Nucleated RBC 0.00, Nucleated RBC % 0.0 Home Medications and Allergies <Susan Hanson - Last Filed: 02/08/22 07:41> <Christy Hair - Last Filed: 02/08/22 08:19> Allergies/Adverse Reactions: Allergies Allergy/AdvReac Type Severity Reaction Status Date / Time No Known Drug Allergies Allergy Verified 02/08/22 06:50 Anes History & Medical History - Anesthetic History Anesthesia Complications: reports: No previous complications Family history of Anesthesia Complications: Denies Family history of Malignant Hyperthermia: Denies - Medical History Cardiovascular: reports: None Pulmonary: reports: None Gastrointestinal: reports: None Urinary: reports: None Neuro: reports: None Musculoskeletal: reports: None Endocrine/Autoimmune: reports: None Skin: reports: None Smoking Status: Never smoker Psychosocial: reports: No issues indicated History of Cancer?: No - Surgical History General: reports: Other (WISDOM TEETH REMOVAL) <Susan Hanson Last Filed: 02/08/22 07:41> Exam General: Alert, Oriented x3, Cooperative, No acute distress Dental: WNL Mouth Openin Fingerbreadth Neck Mobility: Normal Mallampati classification: II Thyromental Distance: 4-6 cm Mental/Cognitive Status: Alert/Oriented X3, Normal for patient Cognitive Status: Within normal limits <Susan Hanson - Last Filed: 02/08/22 07:41> Plan Anesthesia Type: General Consent for Procedure(s) Verified and Reviewed: Yes Code Status: Attempt Resuscitation ASA classification: 2-Mild systemic disease Is this case an emergency?: No <Susan Hanson Last Filed: 02/08/22 07:41>
[2022-02-08 07:59] LABS: BASOPHILS % (AUTO) 0.2 %; EOSINOPHILS # (AUTO) 0.2 10^3/uL (0.0-0.7); EOSINOPHILS % (AUTO) 2.8 %; HCT - HEMATOCRIT 36.3 % (37.0-47.0); HGB - HEMOGLOBIN 11.7 g/dL (12.0-16.0); LYMPHOCYTES # (AUTO) 1.7 10^3/uL (1.5-3.5); LYMPHOCYTES % (AUTO) 30.6 %; MEAN CORPUSCULAR HGB CONC 32.2 g/dL (32.0-36.0); MEAN CORPUSCULAR VOLUME 83.8 fL (81.0-99.0); MEAN PLATELET VOLUME 9.7 fL (7.9-10.8); MONOCYTES # (AUTO) 0.6 10^3/uL (0.0-1.0); MONOCYTES % (AUTO) 11.4 %; NEUTROPHILS % (AUTO) 54.8 %; PLT - PLATELET COUNT 221 10^3/uL (130-450); RED BLOOD COUNT 4.33 10^6/uL (4.20-5.40); RED CELL DISTRIBUTION WIDTH 14.1 % (12.0-15.0); WHITE BLOOD COUNT 5.4 x10^3/uL (4.8-10.8)
[2022-02-08] MEDS ORDERED: ACETAMINOPHEN 1,000 MG/100 ML 1,000 MG/100 ML BAG IV ONE (08:16)
[2022-02-08] MEDS ORDERED: ATROPINE ABBOJECT 1 MG/10 ML SYRINGE IVP PRN (08:19)
[2022-02-08] MEDS ORDERED: HYDROmorphone 0.5 MG/0.5 ML SYRINGE IVP PRN (08:19)
[2022-02-08] MEDS ORDERED: ONDANSETRON 4 MG/2 ML VIAL IVP PRN (08:19)
[2022-02-08] MEDS ORDERED: METOCLOPRAMIDE 10 MG/2 ML VIAL IVP PRN (08:19)
[2022-02-08] MEDS ORDERED: MORPHINE 2 MG/ML CARPUJECT IVP PRN (08:19)
[2022-02-08] MEDS ORDERED: NALOXONE 0.4 MG/ML VIAL IVP PRN (08:19)
[2022-02-08] MEDS ORDERED: ePHEDrine 50 MG/ML VIAL IVP PRN (08:19)
[2022-02-08] MEDS ORDERED: fentaNYL 100 MCG/2 ML VIAL IVP PRN (08:19)
[2022-02-08] MEDS ORDERED: BUPIVACAINE 0.5% PF 30 ML VIAL INFIL ONE ×2 (08:23)
[2022-02-08] MEDS ORDERED: LIDOCAINE MPF 1%-EPI 1:200000 30 ML VIAL SUBQ ONE ×2 (08:23)
[2022-02-08] MEDS ORDERED: SUGAMMADEX 200 MG/2 ML VIAL IVP ONE (08:48)
[2022-02-08] MEDS ORDERED: KETOROLAC 30 MG/ML VIAL ONE (08:49)
[2022-02-08] MEDS ORDERED: LACTATED RINGERS 1,000 ML IV SCH (09:00)
[2022-02-08] MEDS ORDERED: HYDROcod/ACETAM 10 MG/325 MG TABLET PO PRN (09:03)
--- NOTE | 2022-02-08 09:06 | OPERATIVE REPORT ---
Operative Report - General Procedure Date: 02/08/22 Planned Procedure: Laparoscopic bilateral salpingectomy Pre-Op Diagnosis: Desires sterility Procedure Performed: Laparoscopic bilateral salpingectomy Post Op Diagnosis: Same - Procedure Note Primary Surgeon: Zander Villa MD Secondary Surgeon: Jennifer Baldwin DO Anesthesia Provider: Christy Hair CRNA Anesthesia Technique: General ET tube Pathology: Bilateral fallopian tubes IV Fluids (mL): 1,000 Estimated Blood Loss (mL): 5 Findings: Normal-appearing uterus, tubes, ovary, liver, appendix. Complications: None - Other Other Information/Narrative: Prior to surgery, we discussed the risks, alternatives, benefits to tubal ligation. We discussed long-acting control such as IUDs and implants. We had discussion about partner vasectomy and the pros and cons to this including a smaller surgery, and easier recovery. We discussed the general risk of surgery including infection, bleeding, damage to other organs, needing a larger incision. Specific to tubal ligation, we discussed the risk of regret, and discussed that regret is greater in those under 30, without children, and not in stable relationships. Patient says she is confident in her decision to not have any more children. We also discussed the risk of failure, and that less than 1/100 tubal ligation fail, but if it did, she would be at increased risk of ectopic . Patient desires to proceed with bilateral tubal ligation. Patient was taken to the OR and placed in the dorsal lithotomy position using great white stirrups after adequate anesthesia was obtained. Patient was prepped and draped in the usual fashion. The endodontic assistant placed bivalve speculum was used to visualize the cervix and a uterine manipulator was placed with a paracervical block 2% lidocaine with epinephrine and 0.5% Marcaine. The primary surgeon then used the same combination of local was used below the umbilicus. An 11 blade scalpel was used to incise the skin. The varies needle was used to access the peritoneum which was then insufflated starting with low flow until adequate pressure was seen, then high flow was initiated. Direct visual entry was used to place the infraumbilical trocar. 2 additional trocars was placed under visualization in a similar fashion in the right and left lower quadrants. After visualization of the left fallopian tube, it was grasped with an atraumatic grasper. The mesosalpinx was cauterized and cut with a Ligasure device. Attention was then turned to the right fallopian tube which was then removed in a similar fashion. The abdomen was reviewed for hemostasis, and a healthy-appearing liver was noted. The trocars were then removed, and abdomen was evacuated of gas. The trocar sites were then closed with a 4-0 Monocryl in a sub-cuticular fashion and covered with Dermabond. Patient was taken to the PACU in stable condition. I appreciate the assistance of Dr. Jennifer Baldwin during this procedure, and the assistance in retraction, visualization, dissection, and overall assistance during the case were instrumental to the patient's wellbeing.
[2022-02-08 10:23] VITALS: BP 103/57
--- NOTE | 2022-02-08 11:27 | ANESTHESIA POST OP EVALUATION ---
Anesthesia Post Eval - Post Anesthesia Eval Vitals: Last Vital Signs Temp 36.7 C 02/08/22 10:23 Pulse 82 02/08/22 10:23 Resp 17 02/08/22 10:23 BP 103/57 L 02/08/22 10:23 Pulse Ox 98 02/08/22 10:23 O2 Flow Rate CV Function Including HR & BP: Stable Pain Control: Satisfactory Nausea & Vomiting: Negative Mental Status: Baseline Respiratory Status: Airway Patent Hydration Status: Satisfactory Anesthesia Complications: None
== END 2022-02-08 06:14 | disposition home or self-care (01) ==
LOC: SDS 06:13
PROVIDERS: ATTEND Obstetrics & Gynecology
PROC: 0UB74ZZ Excision of Bilateral Fallopian Tubes, Percutaneous Endoscopic Approach (ICD-10-PCS; principal; 2022-02-08 07:30)
DX: Z30.2 Encounter for sterilization (principal); E66.9 Obesity, unspecified; Z20.822 Contact with and (suspected) exposure to COVID-19; Z32.02 Encounter for pregnancy test, result negative; Z68.36 Body mass index [BMI] 36.0-36.9, adult
CPT/HCPCS: 58661; 81025; 85025; 87635; J0131; J7120